=== PATIENT | female | born 1945 | race Caucasian/White ===

== ENCOUNTER 2017-06-25 14:51 | Inpatient (IN) | payer OTHER ==
[~2017-06-25] VITALS: Ht 160 cm; Wt 62.1 kg
--- NOTE | ~2017-06-25 | H ---
[facility] [place] [address] HISTORY AND PHYSICAL Name: WILFREDO MCGREGOR Room #: 461-P ADM IN M.R.#: [id number] Admission: 06/25/17 Attend Phys: Omari Abdalla MD Discharge: Date of : 45 Report #: [id number] THIS REPORT FOR: //name// CC: Omari Abdalla DATE OF SERVICE: 06/25/2017 CHIEF COMPLAINT: Confusion and altered mental status. HISTORY OF PRESENT ILLNESS: The patient is a 72-year-old female who was admitted from the office with altered mental status. She just returned from a trip to [facility] to visit friends and family, which she normally has done over the years and has had confusion for the last day. She has a very helpful neighbor who is also a patient of mine brought her to the office today and noted that she has been disoriented, confused and voicing concerns of depression. She had a hospitalization in the summer of [address] [facility] for depressive symptoms. Minor medication adjustments were made and she was sent home. She has had a very difficult time adjusting since late 2016 when her mother , her sister and she was diagnosed and treated for breast cancer. She did not tolerate tamoxifen or Arimidex and due to the anxiety of the side effects of the medications, she has voiced a lot of anxious and depressive symptoms about her health and overall wellbeing since her cancer diagnosis. In last fall and over the winter, she was in a fairly good place while taking Celexa 40 mg a day and metoprolol. She had seen a second oncologist through and at this point, they were watching her off any oral antihormone treatment. However, during her 3-month trip out of the country, she saw a local physician. All her medications were changed and she stopped citalopram and switched to clonazepam 2 mg a day and away from metoprolol to bisoprolol with amlodipine. She was also placed on a combination statin Zetia therapy as well. PAST MEDICAL HISTORY: Osteoarthritis, hypertension, osteoporosis, breast cancer 02/2015, treated with mastectomy. PAST SURGICAL HISTORY: As above. FAMILY HISTORY: Noncontributory. SOCIAL HISTORY: She is . She lives alone. No history of chronic alcohol or tobacco use. ALLERGIES: Fosamax caused GI distress. MEDICATIONS: She had previously been taking aspirin 81 mg, Celexa 40 mg, calcium, and Toprol-XL 100 mg, but most recently, those had been stopped and she was taking clonazepam 2 mg, Zetia, simvastatin, bisoprolol, amlodipine. [address] [address] HISTORY AND PHYSICAL Name: WILFREDO MCGREGOR Room #: 461-P [facility] IN M.R.#: [id number] Admission: 06/25/17 Attend Phys: Omari Abdalla MD Discharge: Date of : 45 Report #: [id number] REVIEW OF SYSTEMS: She complains of trouble swallowing. She appears very anxious in the office. She complains of lack of appetite, bowel and bladder dysfunction, but denies chest pain, shortness of breath, fever or chills. OBJECTIVE: VITAL SIGNS: Per the nursing note. GENERAL: She is awake and alert, in no distress. HEAD AND NECK: Unremarkable. LUNGS: Clear. HEART: Regular. ABDOMEN: Soft, normoactive bowel sounds. EXTREMITIES: No edema. CBC so far is unremarkable. ASSESSMENT: 1. Altered mental status, may be medication effect. 2. Depression, anxiety about health issues. 3. Hypertension. 4. Personal history of breast cancer, treated surgically in 2015. PLAN: A CT and additional lab data had been requested. I will resume her usual home medications with Celexa and metoprolol. I have asked Dr. Ornelas to see her in consultation in regards to the anxiety and depression. <ELECTRONICALLY SIGNED> By: Omari Abdalla MD 06/28/17 1220 1653 1706 Omari Abdalla MD /nt
--- NOTE | ~2017-06-25 | EKG ---
[address] [address] ELECTROCARDIOGRAM REPORT Name: WILFREDO MCGREGOR Room #: 461- ADM IN M.R.#: [id number] Admission: 06/25/17 Attend Phys: Omari Abdalla MD Discharge: Date of : 45 Report #: [id number] THIS REPORT FOR: //name// [facility] Test Date: 2017-06-25 Test Time: 15:50:23 Pat Name: WILFREDO MCGREGOR Department: Room: 461 Gender: F Systems Integration Manager: CHLOE : 1945 Requested By: Omari Abdalla Order Number: [id number] MD: Parag Patterson Measurements Intervals [place] Rate: 108 P: 29 SD: 138 QRS: -30 QRSD: 86 T: -31 QT: 362 QTc: 485 Interpretive Statements Sinus tachycardia Left ventricular hypertrophy Inferior infarct, old Nonspecific ST and T wave abnormality No previous ECG available for comparison Electronically Signed On 06-25-2017 15:55:59 CDT by Parag Patterson [email or web address] <ELECTRONICALLY SIGNED> By: Parag Patterson MD, [facility] 06/25/17 1555 1550 1550 Parag Patterson MD, FACC /EPI
--- NOTE | ~2017-06-25 | D ---
[facility] [place] [address] DISCHARGE SUMMARY Name: WILFREDO MCGREGOR Room #: 461-P [facility] IN M.R.#: [id number] Admission: 06/25/17 Attend Phys: Omari Abdalla MD Discharge: 06/29/17 Date of : 45 Report #: [id number] THIS REPORT FOR: //name// CC: Omari Abdalla DATE OF SERVICE: 06/30/2017 FINAL DIAGNOSES: 1. Depression with anxiety. 2. Hypertension. HOSPITAL COURSE: The patient was admitted with altered mental status. She was diagnosed with anxiety and depression. Labs and medical workup were unremarkable. Dr. Lee saw her in consultation and medications were adjusted. However, her mentation did not improve. She still had some delusional tangential thoughts and depressive symptoms. Dr. Lee felt that she required inpatient psychiatric admission. DISPOSITION: [facility]. She is admitted under the care of the inhouse physician. She will continue current medications, diet and activity. Follow up with me in a month postdischarge. <ELECTRONICALLY SIGNED> By: Omari Abdalla MD 07/02/17 0855 1 7 Omari Abdalla MD /nt
[2017-06-25 16:47] LABS: HEMATOCRIT 46.5 % (37.0-47.0); HEMOGLOBIN 15.7 gm/dL (12.0-15.0); MCH 30.1 pg (26.0-34.0); MCHC 33.8 g/dL (28.0-37.0); MCV 89.3 fL (80.0-100.0); RBC 5.2 mil/uL (4.20-5.00); RDW 15.9 % (10.5-14.5); WBC 6.7 thou/uL (4.0-11.0)
[2017-06-25 17:03] LABS: ALBUMIN 4.5 g/dL (3.4-5.0); CALCIUM 9.9 mg/dL (8.5-10.1); POTASSIUM 3.9 mmol/L (3.5-5.1); TOTAL BILIRUBIN 0.7 mg/dL (<0.1-1.0); TOTAL PROTEIN 8.2 g/dL (6.4-8.2)
[2017-06-25 18:20] LABS: URINE BILIRUBIN 1+ (Negative); URINE BLOOD NEGATIVE (Negative); URINE CLARITY CLEAR; URINE COLOR YELLOW; URINE GLUCOSE-RANDOM* NEGATIVE (Negative); URINE KETONES 2+ (Negative); URINE LEUKOCYTES-REFLEX NEGATIVE (Negative); URINE NITRITE-REFLEX NEGATIVE (Negative); URINE PROTEIN (DIPSTICK) NEGATIVE (Negative); URINE SPECIFIC GRAVITY 1.025 (1.005-1.035); URINE UROBILINOGEN 0.2 E.U./dl (0.2-1.0)
[2017-06-25 18:22] LABS: ICTOTEST (BILI CONFIRMATORY) Negative (Negative)
[2017-06-25] MEDS ORDERED: LOPRESSOR100 M1 PO (18:38)
[2017-06-25] MEDS ORDERED: CELEXA40 MG PO (18:38)
[2017-06-25] MEDS ORDERED: ASPIRIN81 M2 PO (18:39)
[2017-06-25 19:26] VITALS: BP 142/87
[2017-06-26 00:33] VITALS: BP 116/77
[2017-06-26 03:02] VITALS: BP 119/82
[2017-06-26 03:03] VITALS: BP 119/82
[2017-06-26 05:14] LABS: FOLIC ACID 19.9 ng/mL (8.6-58.9)
[2017-06-26 08:13] VITALS: BP 130/84
[2017-06-26 16:22] VITALS: BP 136/90
[2017-06-26 19:24] VITALS: BP 123/84
[2017-06-27 03:31] VITALS: BP 126/69
[2017-06-27 09:40] VITALS: BP 138/79
[2017-06-27 16:31] VITALS: BP 129/94
[2017-06-27 20:05] VITALS: BP 115/94
[2017-06-28 04:52] VITALS: BP 123/81
[2017-06-28 07:22] VITALS: BP 140/92
[2017-06-28 15:56] VITALS: BP 130/90
[2017-06-28 19:53] VITALS: BP 153/96
[2017-06-29 04:35] VITALS: BP 121/79
[2017-06-29 07:50] VITALS: BP 128/92
[2017-06-29] MEDS ORDERED: REMERON15 MG PO (14:12)
[2017-06-29 14:29] LABS: HEMATOCRIT 46.8 % (37.0-47.0); HEMOGLOBIN 15.7 gm/dL (12.0-15.0); MCH 30.3 pg (26.0-34.0); MCHC 33.5 g/dL (28.0-37.0); MCV 90.6 fL (80.0-100.0); RBC 5.16 mil/uL (4.20-5.00); RDW 15.8 % (10.5-14.5); WBC 6.5 thou/uL (4.0-11.0)
[2017-06-29 16:12] VITALS: BP 143/93
[2017-06-29 19:45] VITALS: BP 143/94
[2017-06-29 21:15] VITALS: BP 143/94
== END 2017-06-29 21:15 | DRG 881 ==
LOC: 4W 14:51
PROVIDERS: Internal Medicine Geriatric Medicine; Psychiatry & Neurology Psychiatry
DX: F32.9 Major depressive disorder, single episode, unspecified (principal); M19.90 Unspecified osteoarthritis, unspecified site; I10 Essential (primary) hypertension; M81.0 Age-related osteoporosis without current pathological fracture; F41.9 Anxiety disorder, unspecified; Z85.3 Personal history of malignant neoplasm of breast; Z79.899 Other long term (current) drug therapy; Z88.8 Allergy status to other drugs, medicaments and biological substances
CPT/HCPCS: 10047

== ENCOUNTER 2019-04-07 00:39 | Inpatient (IN) | payer OTHER ==
[~2019-04-07] VITALS: Ht 157.5 cm; Wt 67.7 kg
[~2019-04-07 00:39] MED LIST: ASPIRIN81 M2 PO; CELEXA40 MG PO; LOPRESSOR100 M1 PO; REMERON15 MG PO
[2019-04-07] MEDS ORDERED: LOPRESSOR50 MG PO (00:54)
[2019-04-07] MEDS ORDERED: CELEXA 10 MG TA10 M1 PO (00:55)
[2019-04-07] MEDS ORDERED: AVAPRO300 MG PO (00:56)
[2019-04-07] MEDS ORDERED: ARICEPT10 M1 PO (00:56)
[2019-04-07] MEDS ORDERED: BUSPIRONE HCL10 MG PO (02:56)
[2019-04-07] MEDS ORDERED: OMEPRAZOLE20 M1 PO (02:56)
[2019-04-07] MEDS ORDERED: ALPRAZOLAM 0.0.25 M1 PO (02:57)
[2019-04-07] MEDS ORDERED: CATAPRES0.1 MG PO (02:58)
--- NOTE | 2019-04-07 05:11 | NUR ---
ARRIVED ON UNIT AT 0148. CHIEF C/O DEPRESSION AND ANXIETY WITH SOME PASSIVE SI WITHOUT PLAN OR INTENT. HX OF ONE INPATIENT TREATMENT IN PAST. MEDICAL ISSUES INCLUDE ARTHRITIS, BREAST CA, HTN. THE BREAST CA RESULTED IN RIGHT MASTECTOMY, WHICH MAY BE A PRECIPITANT TO THIS CURRENT EPISODE. APPETITE DECREASED WITH WT LOSS OF 25 LBS. HAS BEEN MAKING PASSIVE STATMENTS OF SI TO FAMILY. HAS BECOME MORE ISOLATIVE AND NOT TAKING PART IN USUAL ACTIVITIES. PLEASANT AND COOPERATIVE WITH ASSESSMENT PROCESS. NO C/O AT THIS TIME. NO APPARENT DISTRESS. WILL CONTINUE TO MONITOR
[2019-04-07 05:20] VITALS: BP 113/63
--- NOTE | 2019-04-07 09:33 | NUR ---
Sw met with pt to complete the intake assessment and TP. Pt stated that her nephew Kevin Fountain is her DPOA and would like him included in her treatment. Pt lives at [facility] for the last year. She has been feeling depressed but ignored the symptoms for " awhile now." She admits to having complex grief after the loss of her sister, mother and masectomy in 2016. Pt is likely going to to d/c back to [facility] and have outpt therapy and psych care.
[2019-04-07 14:20] LABS: HEMATOCRIT 35.5 % (37.0-47.0); HEMOGLOBIN 11.3 gm/dL (12.0-15.0); MCH 25.2 pg (26.0-34.0); MCHC 31.7 g/dL (28.0-37.0); MCV 79.5 fL (80.0-100.0); RBC 4.46 mil/uL (4.20-5.00); WBC 10.5 thou/uL (4.0-11.0)
[2019-04-07 14:36] LABS: ALBUMIN 2.9 g/dL (3.4-5.0); CALCIUM 9.5 mg/dL (8.5-10.1); CREATININE 1.3 mg/dL (0.6-1.0); POTASSIUM 4.6 mmol/L (3.5-5.1); TOTAL BILIRUBIN 0.2 mg/dL (<0.1-1.0); TOTAL PROTEIN 7.5 g/dL (6.4-8.2)
--- NOTE | 2019-04-07 16:18 | NUR ---
HAS COME OUT OF ROOM FOR MEALS AND DID ATTEND AM RT GROUP. WAS VERY ANXIOUS RE AM MED STATING THAT SHE ALWAYS TAKES MEDICATION WITH FOOD-AND NEEDS MEDS IMMEDIATLY. AT APPROX 1200 APPROACHED THIS NURSE INSISTING THAT SHE WAS SUPPOSED TO GET A MEDICINE AT NOON WITH HER LUNCH-DID MAKE A LIST OF ALL PT MEDS/TIMES AND PROVIDED TO WILFREDO-SHE WAS APPRECIATIVE OF THIS. MINIMIZES DEPRESSIVE SYMPTOMS PRIOR TO ADMIT BUT DOES STATE FELT "VERY ANXIOUS ALL THE TIME" MOSTLY ABOUT HER PHYSICAL HEALTH AND STATES SHE RECENTLY (APPROX 2 WEEKS AGO) HAD SURGICAL PROCEDURE ON BREAST. DENIES ANY OTHER TRIGGERS OR PRECIPITANTS. DESCRIBES MOOD "TIRED" AND "TENSE" AND WAS DOCUMENTED TO HAVE SLEPT ONLY 3 HRS LAST PM SO DID TAKE 11/2 HR NAP THIS PM PRIOR TO SUPPER. DENIES SI/SH/HI-RATES ANXIETY A 7 ON 1-10 SCALE. RATES DEPRESSIVE SYMPTOMS 2-3 ON 1-10 SCALE. DENIES C/O PAIN OR DISCOMFORT DURING AM ASSESSMENT.
[2019-04-07 20:04] VITALS: BP 111/56
--- NOTE | 2019-04-08 03:30 | NUR ---
ASSUMED CARE OF PATIENT ON 04/07/2019 AT APPROXIMATELY 1915. PATIENT WAS IN HER ROOM DURING ONE TO ONE WITH PATIENT. SHE APPEARED WITH AN APPROPRIATE AFFECT, BUT WOULD TURN SUSPICIOUS WHEN ASKING ABOUT HER MEDICATION. SHE SEEMS OVER CONSUMED IN EACH PILL THAT SHE TOOK. SHE APPEARS TO BE PARAINOID OR HAYPERVIGILANT. THIS NURSE REVIEWED MEDICATION WITH THE PATIENT AND OFFERED EDUCATION. HTN STABLE, METROPROLOL GIVEN PULSE WAS 84. SHE DENIED SI HI AND DEPRESSION AND ANXIETY. WILL CONTINUE TO MONITOR MOOD AND BX FOR CHANGES,
[2019-04-08 08:16] VITALS: BP 112/70
--- NOTE | 2019-04-08 08:18 | HC ---
[facility] [place] [address] CONSULTATION Name: MECHEWILFREDO Suzanne Room #: 527B-B ADM IN .R.#: [id number] Admission: 04/07/19 Attend Phys: Martín Tilley DO Discharge: Date of : 45 Report #: [id number] THIS REPORT FOR: //name// CC: Martín Abdalla DATE OF SERVICE: 04/07/2019 REASON FOR CONSULTATION: Hypertension medical management. HISTORY OF PRESENT ILLNESS: The patient is a 74-year-old patient of [facility] who was [facility] for evaluation of anxiety and depression. She was diagnosed with a recurrence of her breast cancer in December and January 2019 and underwent a right mastectomy in February at [facility]. Since that time, she and her family reported that she has been depressed. She is very anxious and has expressed multiple physical complaints and loss of appetite. She has complained ranging from headache, night sweats to feeling cold to tremor in her feet, fatigue, weakness, trouble sleeping and just generally not feeling well. I have seen her several times in the office and tried to adjust her medicines including increasing citalopram and adding mirtazapine and buspirone without success. She had a very similar type of illness 3-4 years ago when she was initially diagnosed with breast cancer, I believe in late 2014. At that time, she underwent a lumpectomy. The medical oncologist had recommended tamoxifen, but the patient reported side effects and she discontinued. They tried Arimidex as well, which she discontinued due to side effects. She had a lot of emotional stress at that time and worry about her health. Ultimately, this led to a brief hospitalization at the psychiatric unit at [facility], I believe in late 2016. She then [facility] an apartment where [facility] is living [facility] During most of 2018 and 2019, her mood was very good. She had gained weight and was active and feeling well. She weaned off and stopped mirtazapine and weaned her citalopram back to her baseline 20 mg a day and she was off buspirone. However, her depression and anxiety symptoms recurred after she underwent the mastectomy about 2 months ago. PAST MEDICAL HISTORY: Breast cancer and hypertension. PAST SURGICAL HISTORY: As above. FAMILY HISTORY: Noncontributory. SOCIAL HISTORY: She was living alone. She has supportive relatives in the area including her nephew and I believe her [id number]. ALLERGIES: None. [facility] [address] [place] [address] CONSULTATION Name: WILFREDO MCGREGOR Room #: 527B-B [facility] IN ..#: [id number] Admission: 04/07/19 Attend Phys: Martín Tilley DO Discharge: Date of : 45 Report #: [id number] MEDICATIONS: Aricept 10 mg, clonidine 0.1 mg at bedtime, metoprolol 50 mg twice a day, irbesartan 300 mg a day, citalopram 40 mg a day, Xanax 0.25 mg b.i.d. p.r.n., buspirone 5 mg t.i.d. and she had been on mirtazapine 15 mg at bedtime, but recently stopped this. REVIEW OF SYSTEMS: Denies headache, chest pain, shortness of breath, abdominal pain, nausea, vomiting, diarrhea, constipation, dysuria, syncope. OBJECTIVE: VITAL SIGNS: Temperature 36.6, pulse 75, respirations 17, blood pressure 113/63, O2 sat 95% on room air. GENERAL: She was awake, resting in bed, in no distress. HEAD AND NECK: Unremarkable. LUNGS: Clear. HEART: Regular. ABDOMEN: Soft, normoactive bowel sounds. EXTREMITIES: No edema. NEUROLOGIC: Motor strength 5/5 throughout. She knew me by name. ASSESSMENT: 1. Hypertension. 2. Breast cancer. 3. Anxiety, depression about health. PLAN: I will hold her psych meds from home and Dr. Jesus and I have spoken and he will assess her and proceed with medication treatment. Blood pressure is on the lower end for now; so, decreased her treatment down to just her beta katty which she has been taking for a number of years. I will continue to follow her hospital stay medically with you. <ELECTRONICALLY SIGNED> By: Omari Abdalla MD 04/08/19 0818 1306 182 Omari Abdalla MD /nt
[2019-04-08 09:06] VITALS: BP 112/70
--- NOTE | 2019-04-08 11:52 | NUR ---
ASSUMED CARE AT 0700 THIS MORNING. PT. UP, DRESSED AND ON THE UNIT. SHE TOOK HER MEDICATIONS WITHOUT DIFFICULTIES NOTED. HER VISITED DURING MORING VISITING TIME. DENIES AVH. DENYING SI/HI TODAY.
[2019-04-08 19:07] VITALS: BP 144/82
[2019-04-09 00:06] LABS: GLYCOHEMOGLOBIN (HGB A1C) 6.3 % (4.8-5.6)
--- NOTE | 2019-04-09 00:13 | NUR ---
ASSUMED CARE OF PATIENT ON 04/08/2019 AT APPROXIMATELY 1915. SHE HAS BEEN IN HER ROOM ISOLATED FROM THE MILIEU SINCE THIS RN ARRIVED. SHE APPEARS WITH A SAD AFFECT, BUT IS COOPERATIVE AND EASILY CONVERSES. SHE IS MEDICATION COMPLIANT. THIS NURSE EDUCATED PATIENT ON MEDICATION SHE WOULD BE RECEIVING AND SHE AGREED THESE MEDICATIONS WERE APPROPRIATE. SHE DENIED SI HI AND HALLUCINATIONS, NO SIGN SOF INTERNAL STIMULI. SHE DENIED MEDICAL CONCERNS, ALTHOUGH DID APPEAR TO BE IN AN UNCOMFORTABLE POSITION AND ENCOURAGED REPOSITIONING. SHE FURTHER DOES NOT APPEAR TO BE IN DISTRESS. NURSING WILL MAINTAIN ALL PRECAUTIONS TO ENSURE SAFETY AT ALL TIMES.
[2019-04-09 07:52] VITALS: BP 134/89
[2019-04-09 09:09] VITALS: BP 134/89
[2019-04-09 19:18] VITALS: BP 142/93
--- NOTE | 2019-04-10 04:06 | NUR ---
PATIENT HAS BEEN IN BED ALL NIGHT. SHE IS INDEPENDENT WITH CARES. SHE DENIES PAIN. PATIENT WAS CALM AND COOPERATIVE TONIGHT AND TOOK HER MEDS WHOLE. SHE WAS ANXIOUS TO GO TO BED AT HS AND HURRIED ME THRU GIVING HER MEDS TO HER. BED IN LOW POSITION. SHE HAS BEEN QUIET AND SLEEPING TONIGHT.
[2019-04-10 07:03] VITALS: BP 145/89
--- NOTE | 2019-04-10 08:30 | NUR ---
SW completed a chart review and pt has some anxiety, and family has concerns about her returning home. Pt lives at [facility] and might need a higher level of care. Pt's nephew Kevin is DP [phone]. Family meeting was set up for 04/12 at 1pm.
--- NOTE | 2019-04-10 08:39 | NUR ---
Sw called and spoke with suresh and provided phone number and confirmed family meeting on Wed. Pt has lived in [place] previously.
--- NOTE | 2019-04-10 12:20 | NUR ---
HAS REMAINED WITHDRAWN TO ROOM IN BED MAJORITY OF AM DID COME OUT FOR AM GROUP D/T ROOM LOCK OUT BUT RETURNS ALMOST IMMEDIATLY UPON COMPLETION OF ACTIVITY- SOMATICALLY PREOCCUPIED VERY FOCUSED ON MEDICATIONS AND VARIOUS SOMATIC ISSUES. AFFECT CONSTRICTED-NO NOTED INTERACTION WITH PEERS-RESPONDS MINIMALLY TO REQUESTS FROM NURSING STAFF
--- NOTE | 2019-04-10 18:22 | NUR ---
TEMP THIS AM RECORDED 99.5-UPON RECHECK AT 1100 IS 98.0-DOES REPORT FEELING LIKE "I AM GETTING A COLD" LUNG SOUNDS DIMINISHED THROUGHOUT-DENIES COUGH-THROAT IS MILDLY REDDENED
--- NOTE | 2019-04-10 18:26 | NUR ---
ATIVAN 0.5MGPOPRN AT 1800 PER PT REQUEST FOR C/O ANXIETY
[2019-04-10 19:54] VITALS: BP 128/84
--- NOTE | 2019-04-11 00:45 | NUR ---
Care assumed of patient at 1915: Patient laying in bed at start of shift. Easily arousable. Primarily alert and oriented x4. Periods of forgetfulness observed. Patient isolative to her room. Declined HS snack. Thoughts organized. Denies SI/HI/AH/VH. No s/s of delusional or paranoia behaviors. Denies feelings of depression or anxiety. Patient calm and cooperative with nursing assessment. Took HS medication whole without difficulty. Diet changed to mechanical chopped, carb control. per ST eval. Patient has been resting quietly primarily all shift thus far.
[2019-04-11 07:53] VITALS: BP 121/74
--- NOTE | 2019-04-11 12:05 | NUR ---
REQUESTED AND RECEIVED ATIVAN 0.5MG PO PRN FOR ANXIETY AT APPROX 0830. ATTEMPTED TO PERSUADE PT TO REFRAIN FROM TAKING D/T SCHEDULED SEROQUEL 25MG PO BEING ADMINISTERED AT THE SAME TIME BUT IS INSISTING RATING ANXIETY AT THAT TIME A 9/10. AFFECT/BEHAVIOR INCONGRUENT WITH THIS HAS BEEN LYING IN BED RESTING QUIETLY WITH EYES CLOSED-FACIAL EXPRESSION CALM. DID COME OUT FOR AM GROUP WITH MUCH ENCOURAGEMENT AND PROMPTING BUT OFFERS MINIMAL PARTICIPATION-SITTING WITH BLANKET WRAPPED AROUND HER AND NO INTERACTION WITH PEER GROUP. DURING 1;1 DOES STATE DEPRESSION IS "PRETTY GOOD" AND RATES DEPREESIVE SYMPTOMS 3 OUT OF 10. AFFECT CONSTRICTED. REPORTS ALL OVER PAIN RATED A 5 ON 1-10 SCALE-DESCRIBED MORE MUSCLE STIFFNESS-ENCOURAGED TO INCREASE TIME OUT OF BED AND STRETCHING ACTIVITY-TYLENOL 650MG GIVEN PO PRN AT 1130 WITH VERBALIZED FAIR RESPONSE
[2019-04-11 20:19] VITALS: BP 117/63
--- NOTE | 2019-04-11 22:11 | NUR ---
Care of patient assumed at 1915: Patient sleeping in bed at start of shift. Patient easily arousable. Alert and oriented x4. Blunted, flat affect. Patient withdrawn to her room. Declined to partake in snack time in dayroom. Patient denies SI/HI/AH/VH. No delusional or paranoia behaviors observed. No somatic complaints observed. Patient did have multiple requests in which she obsessed about. Patient requested ice water. Nurse asked for patient to walk with her to the dayroom so patient could get fresh ice water. Patient stated she would not and was only going to stay in bed. Patient then requested "Pampers" which are the incontinent briefs. Patient stated she needs to wear them due to her bowels. However, patient stated she is able to make it to the bathroom without issue. Patient educated that she needs to get up to use the bathroom and not lay in bed. Patient became irritable then stated "ok, ok". Patient denies pain or discomfort. Took HS medication whole without difficulty. Patient resting quietly in bed at this time.
--- NOTE | 2019-04-12 07:30 | NUR ---
Assumed care of patient this am. Patient sitting in mileu at a table. Patient denies si/hi. Patient ambulates with out assistance. Patient takes medications whole with fluids. Patient attended group this am and then isolates back to her room. Patients assessment shows clear breath sounds, active bowel sounds, and s1 s2 heard with auscultation.
[2019-04-12 07:46] VITALS: BP 119/72
[2019-04-12 08:00] VITALS: BP 119/72
--- NOTE | 2019-04-12 14:19 | NUR ---
SHIRA met with pt and pt's brother and Marcelino PACHECO with Dr haynes for the family meeting. It was estbalished that pt will d/c back to [facility] with 10 hours of PD in [place]. This will include daily visits by family. Pt had a referall for psych from DR Abdalla office [phone] to [phone] (f) [phone]. SHIRA attempted to make an appt for after care and they would only take this call from Marcelino. SHIRA provided the information and phone number to Marcelino and he will set up a first avaialble appt for this pt. SHIRA will fax the d/c summary to Dr Abdalla (f) [phone] and [facility] on Wednesday.
[2019-04-12 19:48] VITALS: BP 123/72
--- NOTE | 2019-04-12 22:43 | H ---
[facility] [address] [place] [address] HISTORY AND PHYSICAL Name: WILFREDO MCGREGOR Room #: 527B-B ADM IN M.R.#: [id number] Admission: 04/07/19 Attend Phys: Martín Tilley DO Discharge: Date of : 45 Report #: [id number] THIS REPORT FOR: //name// CC: Martín Abdalla DATE OF SERVICE: 04/07/2019 INPATIENT PSYCHIATRIC EVALUATION ATTENDING PHYSICIAN: Martín Tilley DO. CYTOGENETICIST: Omari Abdalla MD SOURCES OF INFORMATION: Records from [facility] nursing notes. Telephone discussion with Dr. Abdalla. REASON FOR ADMISSION: Transfer from [facility] who presents with a complaint of depression. HISTORY OF PRESENT ILLNESS: A 74-year-old female, [place] [facility], immigrated in [place] to [place], brought by her son and stated she has increased depression and anxiety since her lumpectomy 2 months ago. Son states her health is going downhill. Son states the patient complains of "burning" on the inside. Son states the patient does not want to eat and was not sleeping well. Son states they have been following with primary care physician who actually is Dr. Abdalla and medications have been adjusted. Son states citalopram has been increased from 10 to 20 to 40 mg this past week. The patient was also recently started on mirtazapine increasing from 7.5 to 15 mg at bedtime. Son states this does not seem to be medications decreased back to 20 mg. The patient denies SI, but states "I don't want to live like this." The patient states she has been having frequent morbid helpless comments for a long time. Denies abdominal pain, no nausea, no vomiting. Denies any respiratory symptoms. Son states they had an appointment with oncologist this week. REVIEW OF SYSTEMS: From the ER, CONSTITUTIONAL: No fever, no chills. Positive sweats, positive weakness, positive fatigue. SKIN: No jaundice, no rash. EAR, NOSE, MOUTH, THROAT: No ear pain. No sore throat. No congestion. RESPIRATORY: No shortness of breath. No cough, no wheezing. CARDIOVASCULAR: No chest pain, no palpitations, no edema. GASTROINTESTINAL: No abdominal pain, no nausea, no vomiting, no diarrhea, no constipation. [facility] [address] [place] [address] HISTORY AND PHYSICAL Name: MECHEWILFREDO Suzanne Room #: 527B-B [facility] IN M.R.#: [id number] Admission: 04/07/19 Attend Phys: Martín Tilley DO Discharge: Date of : 45 Report #: [id number] GENITOURINARY: No dysuria, no hematuria. MUSCULOSKELETAL: Positive back pain. NEUROLOGIC: No headache, no dizziness, no numbness, no weakness. PSYCHIATRIC: As above. Otherwise, 10-point review of systems is negative. PAST MEDICAL HISTORY: Back pain, breast cancer, cataracts, constipation, ____, hypertension, visual impairment, history of pneumonia. PAST SURGICAL HISTORY: Breast mastectomy, simple 01/2019. Breast lumpectomy, sentinel node biopsy 03/24/2015. ALLERGIES: Seasonal allergies SOCIAL HISTORY: Denies tobacco or alcohol use. Unmarried. No children. Actually, the patient told me she did not have children, so I am not sure whether the ER stated she did have children. Chinik language is Swiss. LABORATORY DATA: From the ER, white blood cell count 11.5, H and H 11.1 and 35, platelet count 501. Total protein 7, magnesium 2.0, alkaline phosphatase 97, AST 15, ALT 7, total bilirubin 0.2. Blood alcohol level less than 10.1. Urinalysis is grossly negative. Electrolytes: Sodium 139, potassium 3.7, chloride 101, bicarbonate 23, anion gap 15, glucose 134, BUN 13, creatinine 1.1, calcium 9.1. Creatinine clearance estimated at 41.3, albumin 3.5. Urine drug screen was negative. Additional information, vital signs in the ER included heart rate 118, respiratory rate 16, BP 148/100. LABORATORIES: Done at [place], H and H 11.3 and 35.5, platelet count 515, white count 10.5. Chemistry: Sodium 138, potassium 4.6, chloride 103, bicarbonate 27, BUN 19, creatinine 1.3, estimated GFR 40, glucose 205, calcium 9.5, total bilirubin 0.2, AST 16, ALT 15, alkaline phosphatase 111, total protein 7.5, albumin 2.9. TSH 0.551. No recent imaging. Discussion with the patient, she has had both anxiety and depression. She would like to treat depression first. Discussed risks, benefits, alternatives to use of Ritalin. HOME MEDICATIONS: Mirtazapine 15 mg p.o. at bedtime likely will increase to 30 mg, methylphenidate 5 mg daily which she got, metoprolol 50 mg p.o. b.i.d., losartan 100 mg p.o. daily and that was actually discontinued to help with clarity of thought and impulse control and started on Haldol 0.5 mg p.o. t.i.d. She is already on Donepezil 5 mg p.o. daily, Protonix 40 mg p.o. daily, usual PRNs. PHYSICAL EXAMINATION: VITAL SIGNS: Today, temperature 36.6, pulse 75, respirations 17, BP 115/63, O2 [facility] [address] [place] [address] HISTORY AND PHYSICAL Name: WILFREDO MCGREGOR Room #: 527B-B ADM IN M.R.#: [id number] Admission: 04/07/19 Attend Phys: Martín Tilley DO Discharge: Date of : 45 Report #: [id number] sat 95%. MUSCULOSKELETAL: Normal gait and station. MENTAL STATUS EXAMINATION: This is a well-developed female, appearing stated age, in hospital gown. Attention limited. Concentration limited. Speech is normal rate. Thought process is linear and goal directed. Thought content focused on ameliorating her symptoms. No psychomotor agitation. No psychomotor retardation. Denied SI or HI. Some helplessness, some hopelessness. Denied auditory, visual, or tactile hallucinations. Memory formally tested. [facility] Mental Status Examination was administered, scaled down out of 28. With the patient's trouble understanding some latvian, she scored a 10/28. Deficits were diffuse. Pt could not follow diretcions for revers digit span. FAMILY HISTORY: Four siblings alive. Denies physical, sexual or emotional abuse. Work History: retired about 10 years ago. FORMULATION: A 74-year-old female presenting with worsening depression attributed to her recurrent breast cancer diagnosis now with vague suicidal comments and has been refractory to outpatient treatment. DIAGNOSES: Mood disorder secondary to general medical condition, unspecified anxiety likely major neurocognitive disorder. PLAN: Evaluate, stabilize, obtain collaterals. Case discussed at length with Dr. Abdalla. I will resume mirtazapine and decrease citalopram. start 5 mg of methylphenidate a day to boost mood. I would like to see how her anxiety and mood is tomorrow and try and avoid benzodiazepines in this patient. Estimated length of time spent on review of records, coordination of care is at least 45 minutes. STRENGTHS: She is insured, has supportive people around her. WEAKNESSES: Appearing to be demented already. <ELECTRONICALLY SIGNED> By: Martín Tilley DO 04/12/19 2243 [id number] Martín Tilley DO /nt
--- NOTE | 2019-04-13 04:35 | NUR ---
Assumed care of pt @ 1900. Pt pleasant et cooperative this shift. Pt states that she did have a BM today but stool culture remains uncollected at this time. Ambulates halls ad balta with steady gait. Took meds whole without difficulty. VSWNL. Nurse assessment done with no abnormalities noted at present time. Currently resting in bed with eyes closed. Will continue to monitor per protocol.
[2019-04-13 07:48] VITALS: BP 106/71
[2019-04-13 12:22] VITALS: BP 106/71
[2019-04-13 12:22] LABS: HEMATOCRIT 35.4 % (37.0-47.0); HEMOGLOBIN 11.2 gm/dL (12.0-15.0); MCH 24.7 pg (26.0-34.0); MCHC 31.6 g/dL (28.0-37.0); MCV 78.1 fL (80.0-100.0); RBC 4.53 mil/uL (4.20-5.00); RDW 17.7 % (10.5-14.5)
[2019-04-13 14:03] LABS: % SATURATION 4 % (20-39); IRON 12 ug/dL (50-170); TIBC 284 ug/dL (250-450)
--- NOTE | 2019-04-13 18:05 | NUR ---
ASSUMED CARE AT 0700 TODAY. PT. REMINDED THIS MORNING THAT SHE IS ON ROOM LOCK OUT FOR MEALS AND GROUPS. SHE STATED SHE WAS NOT SURE SHE WAS ON ROOM LOCK OUT BUT SHE WAS COMPLIANT WITH THIS. SHE ATTENDED GROUPS, TOOK MEDICATIONS WITHOUT DIFFICULTY, AND INTERACTED WITH ONE OTHER PEER DURING DINNER. NO PROBLEMS NOTED. FAMILY VISITED THIS MORNING AND THIS AFTERNOON. SOON SHE COULD GO TO HER ROOM, SHE WOULD DO SO AND LAY DOWN.
--- NOTE | 2019-04-14 02:30 | NUR ---
Care assumed of patient at 1915: Patient resting in bed at start of shift. Patient easily aroused. Patient calm, pleasant and cooperative with nursing assessment. Denies pain or discomfort. Denies SI/HI/AH/VH. No delusional or paranoia behaviors observed. Denies depression or anxiety. Patient does present with blunted affect, poor eye contact. Patient declined to come to dayroom for HS snack. Patient stated she was cold. Patient offered warm robe and blanket but she continued to decline. Took HS medication whole without difficulty. Declined HS snack. Patient has not had a BM thus far this shift to collect specimen. Patient has remained withdrawn to her room this evening. Answering short, one word answers to any questions asked. Sarcastic attitude and answers observed at times. Appears to be inconvienced by nursing assessment needing completed. Patient has been able to rest quietly this shift.
[2019-04-14 09:10] VITALS: BP 132/90
--- NOTE | 2019-04-14 11:08 | NUR ---
SHIRA spoke with suresh and he stated that d/c on 04/17 at 4;30pm would work, and that [facility] won't make an appt until this pt is discharged. He also gave SW permission to set up a gastro appt for this pt.
--- NOTE | 2019-04-14 11:13 | NUR ---
Dr ortega office will send the referral for the gastro appt when he sees her on 06/15 at 9:45 am.
[2019-04-14 13:02] VITALS: BP 132/90
--- NOTE | 2019-04-14 13:10 | NUR ---
ASSUMED CARE AT 0700 THIS MORNING. PT. GAVE STOOL SAMPLE THIS MORNING. SAMPLE WAS TAKEN TO THE LAB. THE RESULTS WAS NEGATIVE WOR OCCULT BLOOD. PT. CONTINUES TO SECLUDE HERSELF OF THE UNIT OR IN HER ROOM. SHE HAS REMAINED PLEASANT AND COOPERATIVE WITH STAFF. SHE TOOK HER MEDICATIONS WITHOUT DIFFICULTIES NOTED. ATE ON THE UNIT. SHE SAT ON THE PERIPHERY OF THE GROUP AND INTERACTED A LITTLE BIT. DENIES SI/HI OR AVH TODAY.
[2019-04-14 19:23] VITALS: BP 130/85
--- NOTE | 2019-04-14 23:32 | NUR ---
Care assumed of patient at 1915: Patient sleeping in her bed at start of shift. Easily aroused. Patient asked to get up and join others in the dayroom for HS snack and interaction. Patient complied this evening. Patient joined staff and peers in the dayroom this evening. Patient isolated self to a table near the back but was not isolating self to her room. Patient calm, pleasant and cooperative with nurse. Patient alert and oriented to person and time, some confusion and forgetfulness noted on location and situation. Patient denies SI/HI/AH/VH. No delusional or paranoia behaviors noted. Patient did report feeling depressed. Patient reports that she has a fear of being alone which causes her to be depressed. Patient educated on the importance of being active and not isolating self to her room. Patient not able to identify any other reasons for feeling depressed. Patient encouraged to talk about her feelings and find activities she enjoys to stay busy. Patient does present with flat affect. Patient ate 100% HS snack. Took HS medication whole without difficulty. Nurse thanked patient for being in the dayroom with others this evening rather than staying in her room. Patient retired to bed at a reasonable hour and has been resting quietly since.
--- NOTE | 2019-04-15 08:21 | NUR ---
PT UP THIS AM AND EATING BREAKFAST. PT LIKES TO ISOLATE TO ROOM DURING THE DAY. PT DENIES ANY PAIN. PT WANTS TO HAVE EYE DROPS PLACED THIS AM. PT STATED SHE USES THE DROPS THREE TIMES A DAY. PT DOES HAVE EYE DROPS, PRN ONLY.
[2019-04-15 08:30] VITALS: BP 136/80
--- NOTE | 2019-04-15 08:44 | NUR ---
ADM SYSTAINE EYE DROPS BILATERALLY PER REQUEST.
[2019-04-15 08:47] VITALS: BP 136/80
[2019-04-15 12:12] VITALS: BP 136/80
--- NOTE | 2019-04-15 17:27 | NUR ---
ADM NATRUAL TEARS TO EYES PER REQUEST.
--- NOTE | 2019-04-15 21:21 | NUR ---
Care assumed of patient at 1915: Patient sleeping in bed at start of shift. Patient easily aroused. Patient woken up to notify her of group time and to join others in the dayroom. Patient became irritable with nurse stating she was sleeping so well. Nurse notified patient that it was 7pm and after group, she could go back to bed. Patient reminded of group x2 then joined others in the dayroom. Patient sat with other peers and did not isolate self. Patient did speak some of her gardening and how this hobby brings her naomi. Patient did not contribute to conversation unless she was spoken to directly. Patient presents with flat, blunted affect. Appears depressed. Patient calm, pleasant and cooperative once she joined group. Denies SI/HI/AH/VH. No delusional or paranoia behaviors observed. Denies pain or discomfort. Ate 100% HS snack. Nurse did leave group for a couple minutes. When nurse arrived back to group, patient had left and retired to bed rather early this evening. Patient provided HS medication in bed. Resting quietly at this time.
[2019-04-16 08:15] VITALS: BP 116/68
--- NOTE | 2019-04-16 08:15 | NUR ---
PT OUT IN DINING ROOM EATING BREAKFAST. PT TAKES MEDS WITHOUT ISSUES. PT WANTING ARTIFICIAL TEARS, WHICH ARE PRN. PT DENIES ANY PAIN. NO GOALS AT THIS TIME. PT LIKES TO ISOLATE TO ROOM AFTER MEALS.
[2019-04-16 08:22] VITALS: BP 116/68
--- NOTE | 2019-04-16 08:23 | NUR ---
ADM NATURAL TEARS BILATERLLY.
--- NOTE | 2019-04-16 14:33 | NUR ---
ADM TYLENOL 325MG PO 2 TABS FOR GENERAL PAIN ALL OVER OF 5 ON 1-10 SCALE.
[2019-04-16 19:20] VITALS: BP 99/60
--- NOTE | 2019-04-16 23:43 | NUR ---
Care assumed of patient at 1915: Patient sleeping in her bed at start of shift. Patient easily awokened. Calm, pleasant and cooperative with nursing assessment. Asked to join staff and peers for HS snack in dayroom. Patient declined. Patient isolative to her room all evening. Patient denies pain or discomfort. Patient took HS medication whole without difficulty. Patient presents with flat affect, depressed mood. Reports having "a little" depression. Withdrawn. Does not like to converse with staff and will only answer questions asked during assessment. Took HS medication whole without difficulty. HS Metoprolol held due to hypotension. Education provided to patient. Patient denies SI/HI/AH/VH. No paranoia or delusional behaviors observed.
[2019-04-17 07:26] VITALS: BP 113/82
[2019-04-17] MEDS ORDERED: FERREX 150 PLU1 EAC1 PO (13:57)
[2019-04-17] MEDS ORDERED: LOPRESSOR50 PO (13:58)
[2019-04-17] MEDS ORDERED: CELEXA 20 MG TA20 MG PO (13:58)
[2019-04-17] MEDS ORDERED: SEROQUEL 25 MG25 M1 PO (13:59)
[2019-04-17] MEDS ORDERED: AVAPRO300 MG PO (16:40)
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
--- NOTE | 2019-04-18 10:32 | NUR ---
SHIRA sent d/c summary and orders to [facility] and Dr velasco's office
--- NOTE | 2019-04-19 01:11 | D ---
[facility] [place] [address] DISCHARGE SUMMARY Name: WILFREDO MCGREGOR Room #: 527B-B [facility] IN M.R.#: [id number] Admission: 04/07/19 Attend Phys: Martín Tilley DO Discharge: 04/17/19 Date of : 45 Report #: [id number] THIS REPORT FOR: //name// CC: Martín Abdalla DATE OF SERVICE: 04/17/2019 INPATIENT PSYCHIATRIC DISCHARGE SUMMARY ATTENDING PHYSICIAN: Martín Tilley DO ELECTRIC TRUCK DRIVER: Omari Abdalla MD DISCHARGE DIAGNOSES: Unspecified depressive disorder, improved; unspecified anxiety disorder, improved; major neurocognitive disorder, mild. MEDICAL COMORBIDITIES: As follows, microcytic anemia on iron replacement, diabetes mellitus type 2, currently diet controlled. DISCHARGE PLAN: Discharging to independent living at, I believe, she was in [facility]. General medical care by Dr. Abdalla, who is the patient's primary care physician. Dr. Abdalla on 09/23/2019 for Gastroenterology appointment on 06/15/2018 at 9:45. Apparently, psychiatrist says she cannot make an appointment until the patient is discharged. DISCHARGE DIET: 1800 calorie diabetic diet. ACTIVITY LEVEL: As tolerated. The patient will have attendant care 10 hours a day. Of note, assisted living level of care was recommended; however, the patient's DPOA Kevin wished to go to the attending care 10 hours a day and if the patient wanted to see him. MEDICATIONS: She is on specialized iron pill, 1 tablet p.o. daily, metoprolol tartrate 50 mg p.o. b.i.d. for hypertension, citalopram 20 mg p.o. daily for depression and anxiety, quetiapine [id number] mg at 0900, 1500, 2100. The patient was given 30-day Rx for the quetiapine, 30-day Rx for the iron. She should continue donepezil 5 mg p.o. daily and omeprazole 20 mg p.o. daily. Also, the patient's DPOA wanted her to start Irbesartan 300 mg p.o. daily. Check with Dr. Abdalla. He stated that was fine, so I gave her a 30-day prescription for that. The patient should not take clonidine at this time as well as alprazolam as it is not advisable, given the dementia and age of the patient. REASON FOR ADMISSION: Back on 04/07/2019, the patient was a transfer from [facility] with complaints of depression. Apparently, the patient [address] [address] DISCHARGE SUMMARY Name: WILFREDO MCGREGOR Room #: 527B-B [facility] IN [facility].#: [id number] Admission: 04/07/19 Attend Phys: Martín Tilley DO Discharge: 04/17/19 Date of : 45 Report #: [id number] rather was being treated for breast cancer, was confused that was either metastatic or she could not be helped anymore and did not want to eat and was not sleeping well. Also, was hospitalized for safety. HOSPITAL COURSE: The patient was admitted to Geriatric Psychiatry Unit. The patient really give a cautious response to medication changes, was somatically focused. We had a couple of family meetings with her brother and her son, Kevin. Apparently, the patient had been in assisted living in [facility], but improved and was moved out to independent living. I really felt that the assisted living level of care would help a large amount of the depression and anxiety symptoms; however, as stated previously, family did not want to go that route at least initially upon discharge. PHYSICAL EXAMINATION: VITAL SIGNS: On the day of discharge, temp 36.8, pulse 99, respirations 18, BP 113/82, O2 sat 99%. MUSCULOSKELETAL: Normal gait and station. MENTAL STATUS EXAMINATION: This is a well-developed, female, appearing stated age. Attention fair. Concentration limited. Speech soft, normal rate. Thought process linear and goal oriented. Thought content focused on discharge. No psychomotor retardation with psychomotor agitation. Denied SI or HI. Some degree of helplessness, no hopelessness. No auditory, visual, or tactile hallucinations. Memory is impaired as her score on the SLUMS during admission was 10/28; however, her effort and her Tamazight may not perfect likely depressed her scores to a degree. Insight limited. Judgment limited. Fund of knowledge, no greater than average. PROGNOSIS: For this patient is guarded. <ELECTRONICALLY SIGNED> By: Martín Tilley DO 04/19/19 0111 [id number] Martín Tilley, /nt
== END 2019-04-17 20:15 | disposition home or self-care (01) | DRG 884 ==
LOC: SBH 00:39
PROVIDERS: Internal Medicine Geriatric Medicine; Nurse Practitioner; ADMIT Psychiatry & Neurology Psychiatry
DX: F01.50 Vascular dementia, unspecified severity, without behavioral disturbance, psychotic disturbance, mood disturbance, and anxiety (principal); E43 Unspecified severe protein-calorie malnutrition; I10 Essential (primary) hypertension; Z60.2 Problems related to living alone; F41.9 Anxiety disorder, unspecified; F32.9 Major depressive disorder, single episode, unspecified; D50.9 Iron deficiency anemia, unspecified; E11.36 Type 2 diabetes mellitus with diabetic cataract; F41.0 Panic disorder [episodic paroxysmal anxiety]; K21.9 Gastro-esophageal reflux disease without esophagitis; Z85.3 Personal history of malignant neoplasm of breast; R13.10 Dysphagia, unspecified; R63.4 Abnormal weight loss; Z79.899 Other long term (current) drug therapy; Z90.11 Acquired absence of right breast and nipple; Z68.27 Body mass index [BMI] 27.0-27.9, adult; Z87.01 Personal history of pneumonia (recurrent)
CPT/HCPCS: 10880

== ENCOUNTER 2019-11-09 15:39 | Inpatient (IN) | payer OTHER ==
[~2019-11-09] VITALS: Ht 160 cm; Wt 61.7 kg
[~2019-11-09 15:39] MED LIST changes: +ALPRAZOLAM 0.0.25 M1 PO; +ARICEPT10 M1 PO; +AVAPRO300 MG PO; +BUSPIRONE HCL10 MG PO; +CATAPRES0.1 MG PO; +CELEXA 10 MG TA10 M1 PO; +CELEXA 20 MG TA20 MG PO; +FERREX 150 PLU1 EAC1 PO; +LOPRESSOR50 MG PO; +LOPRESSOR50 PO; +OMEPRAZOLE20 M1 PO; +SEROQUEL 25 MG25 M1 PO
[2019-11-09 15:53] VITALS: BP 210/119
[2019-11-09] MEDS ORDERED: DULOXETINE HCL60 MG PO (16:21)
[2019-11-09] MEDS ORDERED: DONEPEZIL HCL 55 M1 PO (16:21)
[2019-11-09] MEDS ORDERED: QUETIAPINE FUMA25 MG PO (16:21)
[2019-11-09 16:33] LABS: ABSOLUTE NEUTROPHILS 4.5 thou/uL (1.4-8.2); BASOPHILS 0.7 % (0.0-2.0); EOSINOPHILS 1.9 % (0.0-3.0); HEMATOCRIT 33.5 % (37.0-47.0); HEMOGLOBIN 11.3 gm/dL (12.0-15.0); LYMPHOCYTES 21.7 % (24.0-44.0); MCH 29.5 pg (26.0-34.0); MCHC 33.7 g/dL (28.0-37.0); MCV 87.3 fL (80.0-100.0); MONOCYTES 7.9 % (1.0-8.0); PLATELET COUNT 287 thou/uL (150-400); POLYS 67.8 % (36.0-66.0); RBC 3.83 mil/uL (4.20-5.00); RDW 16.9 % (10.5-14.5); WBC 6.7 thou/uL (4.0-11.0)
[2019-11-09 16:37] LABS: URINE BILIRUBIN NEGATIVE (Negative); URINE BLOOD 1+ (Negative); URINE CLARITY CLEAR; URINE COLOR YELLOW; URINE GLUCOSE-RANDOM* NEGATIVE (Negative); URINE KETONES NEGATIVE (Negative); URINE LEUKOCYTES-REFLEX NEGATIVE (Negative); URINE NITRITE-REFLEX NEGATIVE (Negative); URINE PROTEIN (DIPSTICK) 2+ (Negative); URINE SPECIFIC GRAVITY >= 1.030 (1.005-1.035); URINE UROBILINOGEN 0.2 E.U./dl (0.2-1.0)
[2019-11-09 16:41] LABS: ANION GAP 11 mmol/L (7-16); BUN 55 mg/dL (7-18); CALCIUM 8.9 mg/dL (8.5-10.1); CHLORIDE 105 mmol/L (98-107); CO2 22 mmol/L (21-32); CREATININE 3.5 mg/dL (0.6-1.0); GLUCOSE 98 mg/dL (74-106); POTASSIUM 5.1 mmol/L (3.5-5.1); SODIUM 138 mmol/L (136-145)
[2019-11-09 16:47] LABS: ALBUMIN 4.1 g/dL (3.4-5.0); DIRECT BILIRUBIN < 0.1 mg/dL (<0.1-0.2); SGOT 27 U/L (15-37); SGPT 13 U/L (30-65); TOTAL BILIRUBIN 0.4 mg/dL (0.2-1.0); TOTAL PROTEIN 8.3 g/dL (6.4-8.2)
[2019-11-09 16:55] LABS: BACTERIA-REFLEX 1-9 Few /HPF (None Seen); CASTS None Seen /LPF (None Seen); CRYSTALS None Seen /LPF (None Seen); SQUAMOUS >10 Many /LPF (0-3); URINE RBC 3-10 Few /HPF (0-2); URINE WBC-REFLEX 0-5 Rare /HPF (0-5)
--- NOTE | 2019-11-09 17:28 | NUR ---
ELIE CEA: NEPHEW: [phone]
[2019-11-09] MEDS ORDERED: FISH OIL 1,0001 EAC9 PO (18:26)
[2019-11-09] MEDS ORDERED: MULTI VITAMIN1 EACH PO (18:26)
[2019-11-09] MEDS ORDERED: ZYRTEC10 M5 PO (18:26)
[2019-11-09 23:42] VITALS: BP 138/86
--- NOTE | 2019-11-09 23:47 | NUR ---
REPORT ATTEMPTED TO 2 NORTH AT THIS TIME. NURSE UNABLE TO TAKE REPORT AND WILL CALL BACK
[2019-11-10] VITALS (7 sets, daily range): BP systolic 121–171; BP diastolic 57–102
[2019-11-10 05:26] LABS: CALCIUM 7.9 mg/dL (8.5-10.1); CREATININE 2.9 mg/dL (0.6-1.0)
[2019-11-10 05:27] LABS: POTASSIUM 3.9 mmol/L (3.5-5.1)
--- NOTE | 2019-11-10 05:41 | NUR ---
ASSUMED PT CARE AT AROUND 0015, PT IS ADMITTED FROM ED, ALERT AND ORIENTEDX4, SR ON THE MONITOR, ADMISSION ASSESSMENT COMPLETED, DENIES SON, C/O HEADACHE, TYL GIVEN WITH RELIEF, FLUIDS INFUSING ORDERED, NO ACUTE DISTRESS NOTED, WILL CONTINUE TO MONITOR
--- NOTE | 2019-11-10 08:36 | EKG ---
[facility] [place] [address] ELECTROCARDIOGRAM REPORT Name: MECHEWILFREDO Suzanne Room #: 219-P ADM IN M.R.#: [id number] Admission: 11/09/19 Attend Phys: Stephanie You MD Discharge: Date of : 45 Report #: [id number] THIS REPORT FOR: cc: Omari Abdalla MD, David W. MD Lundgren,Parag Willis MD [facility] ~ THIS REPORT FOR: //name// [facility] ED Test Date: 2019-11-09 Test Time: 16:34:26 Pat Name: WILFREDO MCGREGOR Department: Room: 219 Gender: F [employer] Audit Advisor: [facility] : 1945 Requested By: Bud Wray Order Number: [id number] MD: Parag Patterson Measurements Intervals [place] Rate: 84 P: 6 RI: 151 QRS: -25 QRSD: 81 T: 8 QT: 398 QTc: 471 Interpretive Statements Sinus rhythm Left ventricular hypertrophy Inferior infarct, old Compared to ECG 06/25/2017 15:50:23 Sinus tachycardia no longer present Electronically Signed On 11-10-2019 8:36:19 CDT by Parag Patterson [email or web address] <ELECTRONICALLY SIGNED> By: Parag Patterson MD, FACC 11/10/19 0836 1634 [id number] Parag Patterson MD, [facility] /EPI
--- NOTE | 2019-11-10 18:21 | NUR ---
ASSUMED CARE OF PT AT SHIFT CHANGE. ASSESSMENTS CHARTED. MEDS GIVEN PER MAY. PT A&OX4, NO C/O PAIN OR SOA. BP HAS BEEN STABLE AND FLUIDS RUNNING DURING SHIFT. WILL CONTINUE TO MONITOR AND FOLLOW POC.
[2019-11-11 00:36] VITALS: BP 151/93
--- NOTE | 2019-11-11 01:07 | NUR ---
ASSESSMENTS CHARTED, MEDS GIVEN CHARTED. PATIENT RESTING IN BED DURING SHIFT. PATIENT HAS MAINTENANCE FLUIDS, LACTATED RINGERS RUNNING DURING SHIFT. ON ROOM AIR. UP TO BATHROOM WITH STANDBY ASSIST TO HELP WITH POLE. GOOD OUTPUT. PATIENT'S HEART RATE WAS ELEVATED AT START OF SHIFT. LABETALOL GIVEN, BLOOD PRESSURE CAME BACK DOWN BELOW CRITICAL LEVEL. PLAN OF CARE IS TO GO HOME IF ELECTROLYTES CONTINUE IMPROVING.
[2019-11-11 03:50] VITALS: BP 187/111
[2019-11-11 05:43] LABS: ALBUMIN 2.8 g/dL (3.4-5.0); CALCIUM 8.1 mg/dL (8.5-10.1); CREATININE 2.6 mg/dL (0.6-1.0); PHOSPHORUS 2.8 mg/dL (2.5-4.9); POTASSIUM 4.1 mmol/L (3.5-5.1)
[2019-11-11 12:15] VITALS: BP 140/92
[2019-11-11 15:10] VITALS: BP 137/91
--- NOTE | 2019-11-11 17:03 | NUR ---
PT CARE ASSUMED APPROX 0700. ASSESMENTS CHARTED. PT DENIES PAIN AND SOA. BP ELEVATED THIS AM. MEDICATED PER POC AND VSS. UP WITH SBA. TOLERATING POC. DENIES QUESTIONS OR CONCERNS REGARDING POC.
[2019-11-11 20:30] VITALS: BP 143/88
[2019-11-12] VITALS: BP 136/82
--- NOTE | 2019-11-12 00:06 | NUR ---
ASSESSMENTS CHARTED, MEDS CHARTED GIVEN. PATIENT RESTING IN RECLINER AT START OF SHIFT C/O HEADACHE AND BLURRED VISION. GAVE TYLENOL. SHE STATED SHE DID NOT GET TO GO TO THE EYE DOCTOR DUE TO COVID. UP AT [facility] NOW THAT SHE IS NO LONGER ATTACHED TO AN IV POLE. FALL PRECAUTIONS IN PLACE DURING SHIFT.
[2019-11-12 04:00] VITALS: BP 169/99
[2019-11-12 06:27] LABS: ALBUMIN 3.6 g/dL (3.4-5.0); CALCIUM 8.8 mg/dL (8.5-10.1); CREATININE 3.4 mg/dL (0.6-1.0); PHOSPHORUS 3.2 mg/dL (2.5-4.9); POTASSIUM 4.2 mmol/L (3.5-5.1)
[2019-11-12 11:35] VITALS: BP 117/74
[2019-11-12 15:46] VITALS: BP 138/78
[2019-11-12 17:41] LABS: URINE BILIRUBIN NEGATIVE (Negative); URINE BLOOD TRACE (Negative); URINE CLARITY CLEAR; URINE COLOR YELLOW; URINE GLUCOSE-RANDOM* NEGATIVE (Negative); URINE KETONES NEGATIVE (Negative); URINE LEUKOCYTES NEGATIVE (Negative); URINE NITRITE NEGATIVE (Negative); URINE PROTEIN (DIPSTICK) NEGATIVE (Negative); URINE UROBILINOGEN 0.2 E.U./dl (0.2-1.0)
--- NOTE | 2019-11-12 17:54 | NUR ---
ASSUMED CARE OF PT AT SHIFT CHANGE. ASSESSMENTS CHARTED. MEDS GIVEN PER MAY. PT A&OX4, C/O PAIN (HEADACHE) TREATED WITH PO MEDS WITH PARTIAL RELIEF. BP STABLE. PLAN FOR DISCHARGE TOMORROW. WILL CONTINUE TO MONITOR.
--- NOTE | 2019-11-12 18:43 | NUR ---
ASSUMED CARE OF PT AT SHIFT CHANGE. ASSESSMENTS CHARTED. MEDS GIVEN PER MAY. PT A&OX4. C/O OF HEADACHE TREATED WITH PO MEDS WITH PARTIAL RELIEF, PT THINKS IT MAY BE SINSU INFECTION. PLAN FOR DC TOMORROW. WILL CONTINUE TO MONITOR AND FOLLOW POC.
[2019-11-12 20:53] VITALS: BP 148/97
[2019-11-13] VITALS (7 sets, daily range): BP systolic 142–156; BP diastolic 96–105
--- NOTE | 2019-11-13 04:10 | NUR ---
Assumed pt care at 1900. Pt is alert and oriented. No sign of distress noted. Denies any pain.Assessment completed and documented. Pt is ambulatory. Scheduled meds administered to pt. Continue to monitor. No acute event overnight. No further needs at this time
[2019-11-13 06:05] LABS: BASOPHILS 0.7 % (0.0-2.0); EOSINOPHILS 2.6 % (0.0-3.0); HEMATOCRIT 29.9 % (37.0-47.0); HEMOGLOBIN 10.2 gm/dL (12.0-15.0); LYMPHOCYTES 33.5 % (24.0-44.0); MCH 29.8 pg (26.0-34.0); MCHC 34.2 g/dL (28.0-37.0); MCV 87.2 fL (80.0-100.0); PLATELET COUNT 267 thou/uL (150-400); POLYS 56.2 % (36.0-66.0); RBC 3.43 mil/uL (4.20-5.00); RDW 16.6 % (10.5-14.5); WBC 5.3 thou/uL (4.0-11.0)
[2019-11-13 06:17] LABS: ALBUMIN 3.6 g/dL (3.4-5.0); CALCIUM 9.2 mg/dL (8.5-10.1); CREATININE 3.4 mg/dL (0.6-1.0); PHOSPHORUS 3.6 mg/dL (2.5-4.9); POTASSIUM 3.8 mmol/L (3.5-5.1); TOTAL BILIRUBIN 0.4 mg/dL (0.2-1.0); TOTAL PROTEIN 7.2 g/dL (6.4-8.2)
--- NOTE | 2019-11-13 14:36 | NUR ---
Met with patient who resides at [facility] in independent apt. 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 PCP Dr Mark Shearer. Discussed HH with patient. She wants HH at [place]. She has no preference of HH agency. She is agreeable to referral to [facility] care. Faxed referral.
--- NOTE | 2019-11-13 19:40 | NUR ---
ASSUMED CARE OF PT AT SHIFT CHANGE. ASSESSMENT CHARTED. MEDS GIVEN PER MAY. PT A&OX4, NO C/O PAIN OR DISTRESS. RENAL ANS SINUS ULTRASOUND COMPLETE. PLAN FOR DISCHARGE TOMORROW. WILL CONTINUE TO MONITOR AND FOLLOW POC.
--- NOTE | 2019-11-13 22:32 | NUR ---
pt is transferred to [employer] [employer] and report is given to RN taking taking patient. No needs at this time.
[2019-11-14 02:06] VITALS: BP 142/94
--- NOTE | 2019-11-14 05:49 | NUR ---
ASSUMED PT CARE AT 2210 (BEDSIDE REPORT). PT IS A TRANSFER FROM CCU. OTHER THAN BP BEING ELEVATED ALL OTHER VSS. PT DENIES PAIN. PT RESTS IN THE BED. I STOPPED HER BOLUS FLUID AFTER CALLING THE STEEL WHEEL ENGRAVER MULTIPLE TIMES (NO ANSWER ). BP IS WITHIN NORMAL RANGES NOW. PT IS SLEEPING IN BED I WILL CONTINUE TO MONITOR.
[2019-11-14 06:56] LABS: ALBUMIN 3.8 g/dL (3.4-5.0); CALCIUM 9.1 mg/dL (8.5-10.1); CREATININE 3.6 mg/dL (0.6-1.0); PHOSPHORUS 3.9 mg/dL (2.5-4.9); POTASSIUM 4.1 mmol/L (3.5-5.1)
[2019-11-14 07:20] VITALS: BP 167/109
[2019-11-14 07:27] LABS: ABSOLUTE NEUTROPHILS 3.1 thou/uL (1.4-8.2); BASOPHILS 0.7 % (0.0-2.0); EOSINOPHILS 2.6 % (0.0-3.0); HEMATOCRIT 32.4 % (37.0-47.0); HEMOGLOBIN 11.1 gm/dL (12.0-15.0); MCHC 34.2 g/dL (28.0-37.0); MCV 87.7 fL (80.0-100.0); MONOCYTES 8.1 % (1.0-8.0); PLATELET COUNT 282 thou/uL (150-400); POLYS 56.6 % (36.0-66.0); RBC 3.69 mil/uL (4.20-5.00); WBC 5.5 thou/uL (4.0-11.0)
[2019-11-14 09:50] VITALS: BP 152/97
--- NOTE | 2019-11-14 12:30 | NUR ---
Received awake on bed. Due medications given as prescribed, able to swallow meds w/o difficulty. On room air. On telemetry- SR-ST; no complaints of chest pain, crushing sensation and heaviness. Vital signs stable, with elevated BP this AM, scheduled BP meds given as prescribed. On heart healthy diet- tolerating well; no nausea, no vomiting and no abdominal pain. Continent of bowel and bladder, standby assist and gait belt. Falls bundle in place. With SL at R Arm- intact and flushing well; resumed LR at 80cc/hr as ordered. Assisted in ADLs. To continue monitoring patient.
[2019-11-14 17:51] VITALS: BP 150/95
[2019-11-14 20:04] VITALS: BP 150/97
--- NOTE | 2019-11-15 04:17 | NUR ---
PATIENT ALERT AND ORIENTED X4. COOPERATIVE WITH CARE. LR INFUSING PER ORDER. UP TO BATHROOM WITH ONE ASSIST. DENIES PAIN. RESTING QUIETLY THROUGHOUT THE NIGHT. PATIENT PREFERS TO WEAR BRIEFS. WILL MONITOR.
[2019-11-15 06:17] LABS: ALBUMIN 3.5 g/dL (3.4-5.0); CALCIUM 8.8 mg/dL (8.5-10.1); CREATININE 3.4 mg/dL (0.6-1.0); PHOSPHORUS 3.8 mg/dL (2.5-4.9); POTASSIUM 4.5 mmol/L (3.5-5.1)
[2019-11-15 07:21] VITALS: BP 153/102
--- NOTE | 2019-11-15 10:56 | NUR ---
Received awake on bed. A+Ox4. On room air. Vital signs stable, still with elevated BP. On telemtry; SR-ST; no complaints of chest pain, crushing sensation and heaviness. On room air. On heart healthy diet- tolerating well; no nausea, no vomiting and no abdominal pain noted. Continent of bowel and bladder, able to go to the toilet with standby assist. With LR at 80 at L FA, intact and flushing well. Assisted in ADLs. Due medications given as prescribed, able to swallow meds w/o difficulty. Possible discharge today as per Dr Carlos, pt seen and examined by physician this AM. Dr Carlos called back, possible discharge tomorrow- Creatinine high from AM blood draw- pt updated. IV resited- with swelling noted. To continue monitoring patient.
--- NOTE | 2019-11-15 12:43 | NUR ---
discussed with hospitalist possible dc tomorrow. dcp home to [facility] with continua hh when medically stable. creat still elevated 3.4
[2019-11-15 14:06] VITALS: BP 123/79
[2019-11-15 20:25] VITALS: BP 139/82
--- NOTE | 2019-11-16 01:59 | NUR ---
PT IS A&OX4. VSS. PT DENIES PAIN. PT TAKES MEDS WHOLE. PT IS UP AD NGHIA. LR RUNNING AT 80 MLS/HR. PT CALLS OUT APPROPRIATELY. PT IS RESTING IN HER ROOM. WILL CONTINUE TO MONITOR.
[2019-11-16 06:37] LABS: ALBUMIN 3.4 g/dL (3.4-5.0); CALCIUM 8.9 mg/dL (8.5-10.1); PHOSPHORUS 3.6 mg/dL (2.5-4.9); POTASSIUM 4.4 mmol/L (3.5-5.1)
[2019-11-16 07:06] VITALS: BP 165/95
[2019-11-16] MEDS ORDERED: CARVEDILOL12.5 MG PO (09:26)
[2019-11-16] MEDS ORDERED: NORVASC5 MG PO (09:26)
[2019-11-16 09:40] VITALS: BP 152/102
--- NOTE | 2019-11-16 09:49 | NUR ---
discussed with hospitalist this am, dc home today with continua hh. pt and bedside nurse aware of dc home today.
--- NOTE | 2019-11-16 10:59 | NUR ---
PT UP AD NGHIA. DENIES PAIN. DENIES QUESTIONS OR CONCERNS AT THIS TIME. PT PLANS TO DISCHARGE HOME THIS SHIFT WITH HOME HEALTH. DISCHARGE SUMMARY FAXED TO HOME HEALTH BY CM THIS SHIFT. PT STATES SHE WILL HAVE FAMILY PICK HER UP TO TAKE HER HOME. CURRENTLY AWAITING INFO FOR WHEN FAMILY IS AVAILABLE.
== END 2019-11-16 13:46 | disposition home health service (06) | DRG 683 ==
LOC: ER 15:39 → EROBS 18:21 → 2N 18:21 → 4W 11-13 22:29
PROVIDERS: Emergency Medicine; Internal Medicine; Internal Medicine Nephrology; ADMIT Hospitalist; ATTEND Hospitalist
DX: N17.0 Acute kidney failure with tubular necrosis (principal); I16.1 Hypertensive emergency; M19.90 Unspecified osteoarthritis, unspecified site; E78.5 Hyperlipidemia, unspecified; K21.9 Gastro-esophageal reflux disease without esophagitis; R80.9 Proteinuria, unspecified; G89.29 Other chronic pain; I12.9 Hypertensive chronic kidney disease with stage 1 through stage 4 chronic kidney disease, or unspecified chronic kidney disease; M54.9 Dorsalgia, unspecified; N18.3 Chronic kidney disease, stage 3 (moderate); Z85.3 Personal history of malignant neoplasm of breast; Z98.49 Cataract extraction status, unspecified eye; Z79.1 Long term (current) use of non-steroidal anti-inflammatories (NSAID); Z79.899 Other long term (current) drug therapy
CPT/HCPCS: 10045; 10081

== ENCOUNTER → 2021-03-31 | Outpatient (CLI) | payer OTHER ==
[~2021-03-31] MED LIST changes: +CARVEDILOL12.5 MG PO; +DONEPEZIL HCL 55 M1 PO; +DULOXETINE HCL60 MG PO; +FISH OIL 1,0001 EAC9 PO; +MULTI VITAMIN1 EACH PO; +NORVASC5 MG PO; +QUETIAPINE FUMA25 MG PO; +ZYRTEC10 M5 PO
== END ==
LOC: ULTRA 09:05
PROVIDERS: ATTEND Internal Medicine Nephrology
DX: N26.1 Atrophy of kidney (terminal) (principal); N18.4 Chronic kidney disease, stage 4 (severe)